=== PATIENT | male | born 1945 | race Caucasian/White ===

== ENCOUNTER 2017-04-25 21:38 | Inpatient (IN) | payer MEDICARE, BC ==
[~2017-04-25] VITALS: Ht 177.8 cm; Wt 97.8 kg
[2017-04-26] MEDS ORDERED: CELE-193 PO ×2 (03:22→11:28)
[2017-04-26] MEDS ORDERED: FLUT1DIS4 INH ×2 (03:22→11:28)
[2017-04-26] MEDS ORDERED: PRAV20TA4 PO ×2 (03:22→11:28)
[2017-04-26] MEDS ORDERED: FAMO40TA7 PO (03:22)
[2017-04-26] MEDS ORDERED: MOXI400T PO (03:22)
[2017-04-26] MEDS ORDERED: OMEP40CA37 PO (03:22)
[2017-04-26] MEDS ORDERED: mag hydrox/Alum hydrox/simeth 30ml oral suspension PO PRN (03:30)
[2017-04-26] MEDS ORDERED: acetaminophen 325mg tablet PO PRN (03:30)
[2017-04-26] MEDS ORDERED: magnesium hydroxide 30ml (MOM) UD suspension PO PRN (03:30)
[2017-04-26 08:00] VITALS: BP 100/70
[2017-04-26] MEDS ORDERED: MOXI400T32 PO (11:28)
[2017-04-26] MEDS ORDERED: OMEP20CA10 PO (11:28)
[2017-04-26] MEDS ORDERED: ASPI-1265 PO (11:49)
[2017-04-26] MEDS ORDERED: atorvastatin 10mg tablet PO ONE (12:10)
[2017-04-26] MEDS ORDERED: aspirin 81mg tab.chew PO ONE (12:10)
[2017-04-26] MEDS: CITALOpram 10mg tablet PO SCH (13:10)
[2017-04-26 19:34] VITALS: BP 129/82
[2017-04-26] MEDS ORDERED: traZODone 50mg tablet PO PRN (21:45)
[2017-04-27] MEDS: aspirin 81mg tab.chew PO SCH (07:59)
[2017-04-27 08:00] VITALS: BP 126/72
[2017-04-27] MEDS: CITALOpram 10mg tablet PO SCH (08:00)
[2017-04-27] MEDS: atorvastatin 10mg tablet PO SCH (08:00)
[2017-04-27] MEDS ORDERED: pneumococcal 23-VAL P-sac vacc 25 mcg/0.5ml vial IMVAC ONE (10:00)
[2017-04-27 19:12] VITALS: BP 126/73
[2017-04-27] MEDS: traZODone 50mg tablet PO SCH ×2 (21:00→21:58)
[2017-04-28 08:00] VITALS: BP 128/76
[2017-04-28] MEDS ORDERED: CITALOpram 10mg tablet PO SCH (08:00)
[2017-04-28] MEDS: aspirin 81mg tab.chew PO SCH (08:38)
[2017-04-28] MEDS: atorvastatin 10mg tablet PO SCH (08:38)
[2017-04-28 19:41] VITALS: BP 117/69
[2017-04-28] MEDS: traZODone 50mg tablet PO SCH (21:26)
[2017-04-29] MEDS: aspirin 81mg tab.chew PO SCH (07:40)
[2017-04-29] MEDS: atorvastatin 10mg tablet PO SCH (07:40)
[2017-04-29] MEDS ORDERED: CITALOpram 10mg tablet PO SCH (08:00)
[2017-04-29] MEDS: citalopram 20mg tablet PO SCH (08:04)
[2017-04-29 08:54] VITALS: BP 125/73
[2017-04-29] MEDS: acetaminophen 325mg tablet PO PRN (17:24)
[2017-04-29 19:00] VITALS: BP 125/69
[2017-04-29] MEDS: traZODone 50mg tablet PO SCH (20:41)
[2017-04-30] VITALS (7 sets, daily range): BP systolic 116–134; BP diastolic 66–87
[2017-04-30] MEDS: aspirin 81mg tab.chew PO SCH (07:56)
[2017-04-30] MEDS: atorvastatin 10mg tablet PO SCH (07:56)
[2017-04-30] MEDS: citalopram 20mg tablet PO SCH (07:56)
[2017-04-30] MEDS: acetaminophen 325mg tablet PO PRN ×2 (08:00→20:36)
[2017-04-30] MEDS ORDERED: ibuprofen tablet 400 MG TABLET PO PRN (08:50)
[2017-04-30] MEDS: traZODone 50mg tablet PO SCH (20:35)
[2017-05-01] MEDS: aspirin 81mg tab.chew PO SCH (07:54)
[2017-05-01] MEDS: atorvastatin 10mg tablet PO SCH (07:54)
[2017-05-01] MEDS: citalopram 20mg tablet PO SCH (07:55)
[2017-05-01 08:01] VITALS: BP 123/73
[2017-05-01] MEDS ORDERED: TRAZ-143 PO (13:46)
[2017-05-01] MEDS ORDERED: CITA40TA11 PO (13:46)
== END 2017-05-01 16:50 | disposition home or self-care (01) | DRG 885 ==
LOC: ADULT MH 21:39
PROVIDERS: ADMIT Psychiatry & Neurology Psychiatry; ATTEND Psychiatry & Neurology Psychiatry
DX: F33.2 Major depressive disorder, recurrent severe without psychotic features (principal); R45.851 Suicidal ideations; F43.20 Adjustment disorder, unspecified; E78.5 Hyperlipidemia, unspecified; E78.00 Pure hypercholesterolemia, unspecified; G47.09 Other insomnia; Z79.899 Other long term (current) drug therapy; Z79.82 Long term (current) use of aspirin; Z80.0 Family history of malignant neoplasm of digestive organs; Z82.41 Family history of sudden cardiac death; Z23 Encounter for immunization
CPT/HCPCS: 70450; 87070; 99285

== ENCOUNTER 2019-11-26 09:30 | Emergency (ER) | payer MEDICARE, BC ==
[~2019-11-26] VITALS: Ht 177.8 cm; Wt 100.0 kg
[~2019-11-26 09:30] MED LIST: ASPI-1265 PO; CITA40TA11 PO; PRAV20TA4 PO; TRAZ-251 PO
[2019-11-26 09:32] VITALS: BP 125/72
== END 2019-11-26 10:46 | disposition home or self-care (01) ==
LOC: ER 09:31
DX: S61.412A Laceration without foreign body of left hand, initial encounter (principal); E78.00 Pure hypercholesterolemia, unspecified; F32.9 Major depressive disorder, single episode, unspecified; Z88.0 Allergy status to penicillin; Z79.82 Long term (current) use of aspirin; Z79.899 Other long term (current) drug therapy; W26.8XXA Contact with other sharp object(s), not elsewhere classified, initial encounter; Y93.89 Activity, other specified; Y92.89 Other specified places as the place of occurrence of the external cause; Y99.8 Other external cause status
CPT/HCPCS: 99282

== ENCOUNTER 2025-01-30 09:29 | Outpatient (CLI) | payer MEDICARE, BC ==
[~2025-01-30 09:29] MED LIST changes: +CITA-119 PO; -CITA40TA11 PO; +PRAV20TA17 PO; -PRAV20TA4 PO
--- NOTE | 2025-01-30 12:17 | RADIOLOGY REPORT ---
EXAM: CT BIOMETSET SHOULDER RIGHT INDICATION: PAIN IN RIGHT SHOULDER TECHNIQUE: Axial images of right shoulder have been obtained along with coronal and sagittal reformatted images. All CT scans at this facility use dose modulation, iterative reconstruction, and/or weight based dosing when appropriate to reduce radiation dose to as low as reasonably achievable. COMPARISON: None FINDINGS: BONES: Severe degenerative change of the right glenohumeral joint with [id number]-gl-wwlk contact. At least moderate degenerative change of the right acromioclavicular joint. MUSCLES: No abnormal attenuation. JOINT SPACES: TENDONS/LIGAMENTS: Intact. OTHER: None IMPRESSION: 1. Successful CT surgical planning. 2. Severe degenerative change of the right glenohumeral joint.
== END 2025-01-30 23:59 | disposition home or self-care (01) ==
LOC: RAD 09:29
PROVIDERS: ATTEND Orthopaedic Surgery
DX: M19.011 Primary osteoarthritis, right shoulder (principal); M75.41 Impingement syndrome of right shoulder; M25.511 Pain in right shoulder; M75.101 Unspecified rotator cuff tear or rupture of right shoulder, not specified as traumatic
CPT/HCPCS: 73200